=== PATIENT | male | born 1955 | race Caucasian/White ===

== ENCOUNTER 2020-03-22 06:18 | Outpatient (REF) | payer BC, SELFPAY ==
[2020-03-22 07:13] LABS: MANUAL DIFF FLAG NO
[2020-03-22 07:20] LABS: Basophils Absolute Auto 0.1 X10*3/uL (0.0-0.2); Eosinophils Absolute Auto 1.3 X10*3/uL (0.0-0.4); Eosinophils Percent Auto 14.6 % (0-4); Hematocrit 45.8 % (42-52); Hemoglobin 15.1 g/dl (14.0-18.0); Imm Gran Abs Auto 0.01 X10*3/uL (0.00-0.03); Imm Gran Pct Auto 0.1 % (0.0-0.4); Lymphocytes Absolute Auto 2.3 X10*3/uL (1.2-4.9); Lymphocytes Percent Auto 26.5 % (20-40); Mean Corpuscular Hemoglobin 30.4 pg (27.0-33.0); Mean Corpuscular Volume 92.3 fL (80-98); Monocytes Absolute Auto 0.9 X10*3/uL (0.1-1.2); Monocytes Percent Auto 9.9 % (2-11); Neutrophils Absolute Auto 4.1 X10*3/uL (2.0-8.3); Neutrophils Percent Auto 47.9 % (45-73); Platelet Count 272 X10*3/uL (160-400); Red Blood Count 4.96 X10*6/uL (4.60-5.80); Red Cell Distribution Width 13.8 % (11.0-16.0); White Blood Count 8.7 X10*3/uL (4.8-10.8)
[2020-03-22 07:20] LABS: Glucose Urine UA NEG (NEG); Leukocyte Esterase Urine NEG (NEG); Nitrite Urine NEG (NEG); PH 5.5 (5.0-8.0); Specific Gravity - Urine 1.025 (1.005-1.025); Urine Blood TRACE (NEG); Urine Ketones NEG (NEG); Urine Protein NEG (NEG-TRACE)
[2020-03-22 07:23] LABS: Appearance Urine CLEAR; Color Urine YELLOW
[2020-03-22 07:47] LABS: Alanine Aminotransferase 24 U/L (0-40); Albumin Level 3.9 g/dL (3.5-5.0); Alkaline Phosphatase 100 U/L (39-117); Anion Gap 11 (12-20); Aspartate Amino Transferase 21 U/L (5-37); Bilirubin Direct 0.4 mg/dL (0.0-0.5); Blood Urea Nitrogen 19 mg/dL (9-16); C Reactive Protein 0.19 mg/dL (< or = 0.50); Calcium 8.9 mg/dL (8.4-10.2); Carbon Dioxide 28 mmol/L (22-29); Chloride 108 mmol/L (96-108); Cholesterol 194 mg/dL; Estimated Glomerular Filt Rate > 60; Glucose Fasting 97 mg/dL (60-99); HDL Cholesterol 66 mg/dL; LDL Cholesterol Calculated 110 mg/dl; Potassium 4.5 mmol/l (3.3-5.1); Sodium 142 mmol/L (135-145); Total Protein 7.5 g/dL (6.5-8.0); Triglycerides 90 mg/dL
[2020-03-22 07:48] LABS: RBC Urine 0-2 /HPF (0); WBC Urine 0-2 /HPF (0-4)
[2020-03-22 08:10] LABS: Free T4 (Free Thyroxine) 0.94 ng/dL (0.71-1.85); Prostate Specific Antigen 1.12 ng/mL (<0.05-4.0); Vitamin D 25-OH Total 46.9 ng/mL (>30)
[2020-03-22 08:45] LABS: Erythrocyte Sedimentation Rate 13 MM/HR (0-15)
== END 2020-03-22 06:19 | disposition home or self-care (01) ==
LOC: HO.LAB 06:18
DX: Z00.00 Encounter for general adult medical examination without abnormal findings (principal); Z13.220 Encounter for screening for lipoid disorders; Z12.5 Encounter for screening for malignant neoplasm of prostate
CPT/HCPCS: 36415; 80053; 80061; 80076; 81001; 82248; 82306; 84153; 84439; 84443; 85025; 85652; 86140

== ENCOUNTER 2020-07-22 07:37 | Outpatient (REF) | payer MEDICARE, SELFPAY ==
--- NOTE | ~2020-07-22 | XR_ITS ---
EXAMINATION: XR LUMBOSACRAL SPINE CLINICAL INFORMATION: Low back pain COMPARISON: Lumbar spine 01/22/2006. TECHNIQUE: Three views of the lumbosacral spine. FINDINGS: There is normal lumbar lordosis. There is grade 1 anterolisthesis L4 over L5 and L5 over S1. There are severe degenerative disc changes at L5-S1 and L4-L5 disc level. Rest of the disc levels are unremarkable. No lytic or sclerotic process seen. XR/XR lumbar spine 2-3V IMPRESSION: Grade 1 anterolisthesis L4 over L5 and L5 over S1. Severe degenerative disc changes L5-S1 disc level mild degenerative changes L4-L5 disc level. No fracture or lytic process seen.
== END 2020-07-22 07:38 | disposition home or self-care (01) ==
LOC: HO.XRAY 07:37
PROVIDERS: PCP Internal Medicine; Visit Provider Internal Medicine
DX: M54.5 Low back pain (principal)
CPT/HCPCS: 72100

== ENCOUNTER 2021-03-24 07:18 | Outpatient (REF) | payer MEDICARE, SELFPAY ==
[2021-03-24 07:36] LABS: MANUAL DIFF FLAG NO
[2021-03-24 08:03] LABS: Basophils Absolute Auto 0.1 X10*3/uL (0.0-0.2); Eosinophils Percent Auto 11.9 % (0-4); Hematocrit 48.6 % (42.0-52.0); Hemoglobin 15.7 g/dl (14.0-18.0); Imm Gran Abs Auto 0.02 X10*3/uL (0.00-0.03); Imm Gran Pct Auto 0.2 % (0.0-0.4); Lymphocytes Percent Auto 23.5 % (20-40); Mean Corpuscular HGB Conc 32.3 g/dl (31.0-36.0); Mean Corpuscular Hemoglobin 30.1 pg (27.0-33.0); Mean Corpuscular Volume 93.1 fL (80.0-98.0); Mean Platelet Volume 10.6 fL (9.4-12.4); Monocytes Absolute Auto 0.7 X10*3/uL (0.1-1.2); Monocytes Percent Auto 8.6 % (2-11); Neutrophils Absolute Auto 4.7 x10*3/uL (2.0-8.3); Neutrophils Percent Auto 54.8 % (45-73); Platelet Count 292 X10*3/uL (160-400); Red Blood Count 5.22 X10*6/uL (4.60-5.80); Red Cell Distribution Width 13.6 % (11.0-16.0); White Blood Count 8.6 X10*3/uL (4.8-10.8)
[2021-03-24 08:22] LABS: Alanine Aminotransferase 29 U/L (0-40); Albumin Level 3.9 g/dL (3.5-5.0); Alkaline Phosphatase 93 U/L (39-117); Anion Gap 11 (12-20); Aspartate Amino Transferase 24 U/L (5-37); Bilirubin Total 1.5 mg/dL (0.0-1.0); Blood Urea Nitrogen 15 mg/dL (9-16); Calcium 9.6 mg/dL (8.4-10.2); Carbon Dioxide 28 mmol/L (22-29); Chloride 109 mmol/L (96-108); Cholesterol 193 mg/dL; Estimated Glomerular Filt Rate > 60; Glucose Random 91 mg/dL (60-115); Potassium 4.6 mmol/L (3.3-5.1); Sodium 143 mmol/L (135-145); Total Protein 7.7 g/dL (6.5-8.0)
[2021-03-24 08:36] LABS: Appearance Urine CLEAR; Color Urine YELLOW; Glucose Urine UA NEG (NEG); Leukocyte Esterase Urine NEG (NEG); Nitrite Urine NEG (NEG); Urine Blood NEG (NEG); Urine Ketones NEG (NEG); Urine Protein NEG (NEG-TRACE)
[2021-03-24 08:42] LABS: Prostate Specific Antigen 1.77 ng/mL (<0.05-4.0)
== END 2021-03-24 07:19 | disposition home or self-care (01) ==
LOC: HO.LAB 07:18
PROVIDERS: PCP Internal Medicine; Visit Provider Internal Medicine
DX: Z00.00 Encounter for general adult medical examination without abnormal findings (principal); K21.9 Gastro-esophageal reflux disease without esophagitis; N40.0 Benign prostatic hyperplasia without lower urinary tract symptoms
CPT/HCPCS: 36415; 80053; 81003; 82465; 84153; 85025

== ENCOUNTER 2021-08-15 07:12 | Outpatient (REF) | payer MEDICARE, SELFPAY ==
--- NOTE | ~2021-08-15 | XR_ITS ---
EXAMINATION: XR SHOULDER, RIGHT CLINICAL INFORMATION: Right shoulder pain. COMPARISON: None TECHNIQUE: Three views of the right shoulder. FINDINGS: There is no evidence of acute fracture or dislocation of the right shoulder. The glenohumeral joint appears unremarkable. No calcific tendinitis is appreciated. There is a small spur seen involving either the lesser or greater tuberosity. There is degenerative change of the acromioclavicular joint with loss of joint space and prominent spurring. No widening of the coracoclavicular space is seen. XR/XR shoulder RT min 2V IMPRESSION: No evidence of acute fracture or dislocation of the right shoulder. No calcific tendinitis. Acromioclavicular joint degenerative change.
== END 2021-08-15 07:13 | disposition home or self-care (01) ==
LOC: HO.HOSX 07:12
PROVIDERS: Visit Provider Physician Assistant
DX: M75.21 Bicipital tendinitis, right shoulder (principal)
CPT/HCPCS: 20610; 73030; 99202; J1040

== ENCOUNTER 2022-04-20 07:13 | Outpatient (REF) | payer MEDICARE, SELFPAY ==
[2022-04-20 07:30] LABS: MANUAL DIFF FLAG NO
[2022-04-20 07:54] LABS: Basophils Absolute Auto 0.1 X10*3/uL (0.0-0.2); Basophils Percent Auto 1.1 % (0-2); Eosinophils Absolute Auto 1.5 X10*3/uL (0.0-0.4); Hematocrit 44.7 % (42.0-52.0); Hemoglobin 14.5 g/dl (14.0-18.0); Imm Gran Abs Auto 0.05 X10*3/uL (0.00-0.03); Imm Gran Pct Auto 0.4 % (0.0-0.4); Lymphocytes Absolute Auto 2.2 X10*3/uL (1.2-4.9); Lymphocytes Percent Auto 19.2 % (20-40); Mean Corpuscular HGB Conc 32.4 g/dl (31.0-36.0); Mean Corpuscular Hemoglobin 30.5 pg (27.0-33.0); Mean Corpuscular Volume 93.9 fL (80.0-98.0); Mean Platelet Volume 10.2 fL (9.4-12.4); Monocytes Absolute Auto 1.1 X10*3/uL (0.1-1.2); Monocytes Percent Auto 9.7 % (2-11); Neutrophils Absolute Auto 6.5 x10*3/uL (2.0-8.3); Neutrophils Percent Auto 56.6 % (45-73); Platelet Count 287 X10*3/uL (160-400); Red Blood Count 4.76 X10*6/uL (4.60-5.80); White Blood Count 11.6 X10*3/uL (4.8-10.8)
[2022-04-20 08:26] LABS: Alanine Aminotransferase 28 U/L (0-40); Albumin Level 3.7 g/dL (3.5-5.0); Alkaline Phosphatase 98 U/L (39-117); Anion Gap 11 (12-20); Aspartate Amino Transferase 20 U/L (5-37); Bilirubin Total 1.2 mg/dL (0.0-1.0); Blood Urea Nitrogen 16 mg/dL (9-16); Calcium 9.3 mg/dL (8.4-10.2); Carbon Dioxide 28 mmol/L (22-29); Chloride 109 mmol/L (96-108); Cholesterol 177 mg/dL; Estimated Glomerular Filt Rate > 60; Glucose Fasting 96 mg/dL (60-99); HDL Cholesterol 60 mg/dL; LDL Cholesterol Calculated 98 mg/dl; Potassium 4.7 mmol/L (3.3-5.1); Sodium 143 mmol/L (135-145); Total Protein 7.2 g/dL (6.5-8.0); Triglycerides 98 mg/dL
== END 2022-04-20 07:14 | disposition home or self-care (01) ==
LOC: HO.LAB 07:13
PROVIDERS: PCP Internal Medicine; Visit Provider Internal Medicine
DX: Z00.00 Encounter for general adult medical examination without abnormal findings (principal); Z12.5 Encounter for screening for malignant neoplasm of prostate
CPT/HCPCS: 36415; 80053; 80061; 84153; 85025

== ENCOUNTER 2022-10-25 15:56 | Outpatient (REF) | payer MEDICARE, SELFPAY ==
--- NOTE | ~2022-10-25 | XR_ITS ---
EXAMINATION: XR ELBOW, LEFT CLINICAL INFORMATION: Elbow fracture COMPARISON: None available. TECHNIQUE: Three views of the left elbow. FINDINGS: Impacted fracture of the radial head and neck. Displacement of the anterior fat pad compatible with joint effusion. Soft tissues are otherwise unremarkable. Joint spaces are maintained. XR/XR elbow LT min 3V IMPRESSION: 1. Impacted fracture of the radial head and neck. 2. Displacement of the anterior fat pad compatible with joint effusion.
== END 2022-10-25 15:57 | disposition home or self-care (01) ==
LOC: HO.LAB 15:56
PROVIDERS: PCP Internal Medicine; Visit Provider Internal Medicine
DX: S42.402D Unspecified fracture of lower end of left humerus, subsequent encounter for fracture with routine healing (principal); X58.XXXD Exposure to other specified factors, subsequent encounter
CPT/HCPCS: 73080

== ENCOUNTER 2023-05-14 06:20 | Outpatient (REF) | payer MEDICARE, SELFPAY ==
[2023-05-14 06:35] LABS: MANUAL DIFF FLAG NO
[2023-05-14 07:03] LABS: Basophils Absolute Auto 0.1 X10*3/uL (0.0-0.2); Basophils Percent Auto 0.8 % (0-2); Eosinophils Absolute Auto 0.9 X10*3/uL (0.0-0.4); Eosinophils Percent Auto 9.6 % (0-4); Hematocrit 45.5 % (42.0-52.0); Hemoglobin 15.1 g/dl (14.0-18.0); Imm Gran Abs Auto 0.02 X10*3/uL (0.00-0.03); Imm Gran Pct Auto 0.2 % (0.0-0.4); Lymphocytes Percent Auto 21.4 % (20-40); Mean Corpuscular HGB Conc 33.2 g/dl (31.0-36.0); Mean Corpuscular Hemoglobin 30.4 pg (27.0-33.0); Mean Corpuscular Volume 91.7 fL (80.0-98.0); Mean Platelet Volume 10.2 fL (9.4-12.4); Monocytes Absolute Auto 0.9 X10*3/uL (0.1-1.2); Monocytes Percent Auto 9.3 % (2-11); Neutrophils Absolute Auto 5.6 x10*3/uL (2.0-8.3); Neutrophils Percent Auto 58.7 % (45-73); Platelet Count 264 X10*3/uL (160-400); Red Blood Count 4.96 X10*6/uL (4.60-5.80); Red Cell Distribution Width 13.8 % (11.0-16.0); White Blood Count 9.5 X10*3/uL (4.8-10.8)
[2023-05-14 07:54] LABS: Prostate Specific Antigen Scr 1.57 ng/mL (<0.05-4.0)
[2023-05-14 15:17] LABS: Alanine Aminotransferase 30 U/L (0-40); Albumin Level 3.9 g/dL (3.5-5.0); Alkaline Phosphatase 110 U/L (39-117); Anion Gap 13 (12-20); Aspartate Amino Transferase 22 U/L (5-37); Bilirubin Total 0.7 mg/dL (0.0-1.0); Blood Urea Nitrogen 20 mg/dL (9-16); Calcium 9.5 mg/dL (8.4-10.2); Carbon Dioxide 27 mmol/L (22-29); Chloride 109 mmol/L (96-108); Cholesterol 192 mg/dL (<200); Estimated Glomerular Filt Rate > 60; Glucose Fasting 98 mg/dL (60-99); HDL Cholesterol 66 mg/dL (>40); LDL Cholesterol Calculated 107 mg/dL (<100); Potassium 4.6 mmol/L (3.3-5.1); Sodium 144 mmol/L (135-145); Total Protein 7.4 g/dL (6.5-8.0); Triglycerides 98 mg/dL (<150)
== END 2023-05-14 06:21 | disposition home or self-care (01) ==
LOC: HO.LAB 06:20
PROVIDERS: PCP Internal Medicine; Visit Provider Internal Medicine
DX: M54.9 Dorsalgia, unspecified (principal); J45.909 Unspecified asthma, uncomplicated; Z87.09 Personal history of other diseases of the respiratory system; Z82.49 Family history of ischemic heart disease and other diseases of the circulatory system
CPT/HCPCS: 36415; 80053; 80061; 84153; 85025

== ENCOUNTER 2023-07-30 07:02 | Outpatient (REF) | payer MEDICARE, SELFPAY ==
--- NOTE | ~2023-07-30 | XR_ITS ---
EXAMINATION: XR ANKLE, LEFT CLINICAL INFORMATION: Left ankle swelling, patient states history of surgery in 1994. Recently left ankle pain, hobble when walking. COMPARISON: None available. TECHNIQUE: AP, lateral, and mortise views of the left ankle. FINDINGS: Metallic plate and screws traverse the distal fibula with evidence of prior fracture. Three (3) screws present in the distal tibia. Hardware appears intact. Bones are diffusely demineralized. Small plantar calcaneal spur. Mild asymmetric widening of the ankle mortise. Degenerative changes at the ankle. XR/XR ankle LT min 3V IMPRESSION: 1. Postsurgical changes distal tibia and fibula. Hardware appears intact. 2. Mild asymmetric widening of the ankle mortise. 3. Recommend follow-up imaging in 10-14 days if fracture is suspected.
== END 2023-07-30 07:03 | disposition home or self-care (01) ==
LOC: HO.XRAY 07:02
PROVIDERS: PCP Internal Medicine; Visit Provider Internal Medicine
DX: R60.0 Localized edema (principal)
CPT/HCPCS: 73610

== ENCOUNTER 2024-04-28 12:41 | Outpatient (AMB) | payer MEDICARE, SELFPAY ==
--- NOTE | 2024-04-28 12:45 | A.SPINEOV_ITS ---
Vital Signs 04/28/24 13:02 Height 5 ft 10 in Weight 200 lb BMI 28.7 Intake Visit Reasons: sciatic pain Intake Note: Mr. Avelar is here today c/o Low back discomfort that causes tingling to the Left ankle. Hotel Operations Manager Required: No Allergies aspirin Allergy (Verified 04/28/24 13:02) runny nose, labored breathering azithromycin [From Zithromax] Allergy (Verified 08/15/21 08:19) Itching Physical Exam Vital Signs: BMI result Body Mass Index 28.7 Assessment & Plan Assessment & Plan (1) Spondylolisthesis, lumbar region: Code(s): M43.16 - Spondylolisthesis, lumbar region Category: Medical (2) Lumbar stenosis with neurogenic claudication: Code(s): M48.062 - Spinal stenosis, lumbar region with neurogenic claudication Category: Medical Plan Dear colleague Thank you for referring Alex Avelar to the office today with a chief complaint of left leg discomfort and weakness. HPI: This 68 year old male developed discomfort in his left leg after he was painting in 1999. The pain/discomfort is present in the left side of his buttock and can radiate to his groin and outside of his thigh. Sometimes it goes down to the outside of his left ankle. The symptoms are worse with walking and standing. He likes to sit in a recliner and bending forward also improves the symptoms. He denies significant back pain. [facility] was [facility] at [facility] who told him that he most likely would need surgery. He tried physical therapy and acupuncture but the symptoms never resolved completely. He saw Dr. Alexander, neurosurgeon in October of 2022, who recommended another course of physical therapy and also told him that he would most likely end up with some form of surgery. He also states he has weakness in his left leg. On further questioning he has difficulty getting out of a chair and when he stands on his left leg is a feeling it may give out. In the past, he also suffered from pain in the right leg for a period of time that resolved spontaneously. He takes Celebrex daily. PMH: Left ankle surgery Medications: Aspirin, Advair and Celebrex Allergies: Aspirin? 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 Denies smoking. Physical Exam: Pleasant male. He walks in a flexed position.Wilcox test produces pain in the left buttock. Straight leg raise is negative bilaterally. Motor exam shows a 5 iliopsoas on the left side. Reflex exam shows a discrepancy between upper and lower extremities where there is hyperreflexia of the lower extremities. There is a ankle clonus on the right side. There is Manny reflexes bilaterally. Sensory exam is intact. Radiological Studies: MRI done at [facility] on 03/16/2024 shows a grade 1 L4-5 spondylolisthesis and a grade 2 L5-S1 spondylolisthesis with associated severe L4-5 spinal stenosis and moderate bilateral L5 foraminal stenosis. There is also moderate L3-4 spinal stenosis and a mild L2-L3 central stenosis. Impression/Plan: This patient is suffering from left unilateral neurogenic claudication most likely related to the severe L4-5 spinal stenosis and foraminal stenosis. I offered him a laminotomy/foraminotomy to decompress the L5 nerve root and to address his symptoms. I do not think he needs any form a fusion surgery at this time as he denies back pain. However, before we will further discuss surgery, I would like to have an MRI of the cervical spine to exclude spinal cord compression as the physical exam reveals iliopsoas weakness and hyperreflexia and pathological reflexes. I will follow-up as soon as the MRI is completed. Thank you for allowing me to participate in your patients care. total time spent was 50 minutes in counseling ,coordination of plan, personal review of imaging, surgical decision making and subsequent plan Bobby Thomas MD, PhD Spine Fellowship Trained Neurosurgeon Director, [facility] Orders: Orders MR cervical spine wo con Today G95.9 - Disease of spinal cord, unspecified Coding Level of Care Code New Pt Level 4 (11602) Diagnoses Spondylolisthesis, lumbar region M43.16 Lumbar stenosis with neurogenic claudication M48.062
[2024-04-28 13:02] VITALS: BMI 28.7
--- OUTSIDE RECORDS SUMMARY | 2024-04-28 14:29 | XMS_ITS | Clinical Summary ---
Author Organization [facility] ity Address [address] [place] [address] Care Team Providers Care Commercial Producer Name Role Phone Scott Covarrubias MD Primary Care Provider [phone] Surgical History Surgery Date Site/Laterality Comments ANKLE SURGERY 1994 Left PROCEDURE: HISTORICAL ANKLE SURGERY; COMMENT: Ankle fracture, Dr. Flores Medical History Medical History Date Comments Aspirin-exacerbated respirat ory disease (AERD) DX:Aspirin-exacerbated respi ratory disease (AERD); COMMENT: Had desensitization at [facility] Mild intermittent asthma, uncomplicated DX:Mild intermittent asthma, uncomplicated Social History Tobacco Use Types Packs/Day Years Used Date Smoking Tobacco: Never Smokeless Tobacco: Never Sex and Gender Information Value Date Recorded Sex Assigned at Not on file Gender Identity Not on file Sexual Orientation Not on file Obstetrics History Last Filed Vital Signs Vital Sign Reading Time Taken Comments Blood Pressure - - Pulse - - Temperature - - Respiratory Rate - - Oxygen Saturation - - Inhaled Oxygen Concentration - - Weight 86.2 kg (190 lb) 08/23/2022 1:18 PM EDT Height 177.8 cm (5' 10 ) 08/23/2022 1:18 PM EDT Body Mass Index 27.26 08/23/2022 1:18 PM EDT Plan of Treatment Health Maintenance Due Date Last Done Comments Zoster Vaccines (1 of 2) 07/16/2005 Pneumococcal Vaccine: 65+ Years (1 of 1 - PCV) 07/16/2020 Abdominal Aortic Aneurysm (AAA) Screen 05/07/2023 Cholesterol Screening (Lipid Panel) 05/07/2023 Colorectal Cancer Screening: Colonoscopy 05/07/2023 Depression Screening 05/07/2023 Falls Risk Assessment 05/07/2023 Hepatitis C Screening 05/07/2023 Social Influencers of Health Screening 05/07/2023 COVID-19 Vaccine (4 - 2023-2 5 season) 2023 05/01/2021, 07/27/2020, 07/06/2020 Influenza Vaccine (#1) 2023 DTaP,Tdap,and Td Vaccines (2 - Td or Tdap) 04/23/2027 04/23/2017 RSV Immunization Patients 60 + Years Old (1 - 1-dose 75+ series) 07/16/2030 HIB Vaccines Aged Out No longer eligi ble based on patient's age to complete this topic HPV Vaccines Aged Out No longer eligi ble based on patient's age to complete this topic Hepatitis A Vaccines Aged Out No long er eligible based on patient's age to complete this topic Hepatitis B Vaccines Aged Out No long er eligible based on patient's age to complete this topic IPV Vaccines Aged Out No longer eligi ble based on patient's age to complete this topic MMR Vaccines Aged Out No longer eligi ble based on patient's age to complete this topic Meningococcal ACWY Vaccine Aged Out N o longer eligible based on patient's age to complete this topic RSV Immunization Patients Under 20 months Aged Out No longer eligible b ased on patient's age to complete this topic Varicella Vaccines Aged Out No longer eligible based on patient's age to complete this topic Care Teams Commercial Producer Relationship Specialty Start Date End Date Scott Covarrubias MD [address] [place] [address] Dr Bjorn MA PCP - General 08/27/22
== END 2024-04-28 13:50 | disposition home or self-care (01) ==
PROVIDERS: PCP Internal Medicine; Visit Provider Neurological Surgery
DX: M43.16 Spondylolisthesis, lumbar region (principal); M48.062 Spinal stenosis, lumbar region with neurogenic claudication
CPT/HCPCS: 99204

== ENCOUNTER → 2024-04-28 12:41 | Outpatient (BNVA) | payer MEDICARE, SELFPAY | PROVIDERS: PCP Internal Medicine; Visit Provider Neurological Surgery | DX: M43.16 Spondylolisthesis, lumbar region (principal); M48.062 Spinal stenosis, lumbar region with neurogenic claudication; G95.9 Disease of spinal cord, unspecified | CPT/HCPCS: 99202 ==

== ENCOUNTER 2024-09-03 10:39 | Outpatient (AMB) | payer MEDICARE, SELFPAY ==
[2024-09-03 10:11] VITALS: BP 142/86; PULSE 77; TEMP 36.5; O2SAT 98; BMI 29.3
--- NOTE | 2024-09-03 10:11 | A.OFFPC_ITS ---
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: No Accompanied by: Self / Same As Patient Allergies aspirin Allergy (Verified 09/03/24 10:11) runny nose, labored breathering azithromycin [From Zithromax] Allergy (Verified 09/03/24 10:11) Itching Tobacco use date assessed: 09/03/24 Fall risk assessment: No Falls in past year Last assessed Fall Risk: 09/03/24 Dental Screening Dental Screen Date: 09/03/24 Did you have a dental visit in the last 12 months?: Yes Did you have a dental problem in the last 6 months where you did not have access to dental care?: No HPI HPI Comments History of Present Illness Details 69 year old with past medical history of asthma, DDD cervical, lumbar s pine, arthritis presenting for follow up BP 142/86, repeat 136/84. Denies chest pain, exertional dyspnea. Asthma: Controlled on advair, pulmicort nasal. Saw neurosurgery Dr Thomas-recommended procedure and Dr Ordaz-did not recommend procedure. Saw [facility] pain management in [facility]. Had one injection July 21. On celebrex. Gets the brand name through [facility] pharmacy Colonoscopy: Dr Elaine initial colonoscopy. Summer 2023-cologua ROS CONSTITUTIONAL: Denies weight loss, fever and chills. HEENT: Denies changes in vision and hearing. RESPIRATORY: Denies SOB and cough. CV: Denies palpitations and CP GI: Denies abdominal pain, nausea, vomiting and diarrhea. : Denies dysuria and urinary frequency. MSK: Denies new myalgia and joint pain. SKIN: Denies rash and pruritus. NEUROLOGICAL: Denies headache PSYCHIATRIC: Denies recent changes in mood. PHYSICAL EXAM: GENERAL: Alert and oriented x 3. NAD EYES: EOMI. Anicteric. HENT: Moist mucous membranes. No scleral icterus. No cervical lymphadenopathy. LUNGS: Clear to auscultation bilaterally. CARDIOVASCULAR: Regular rate and rhythm. No murmur. No JVD. ABDOMEN: Soft, non-tender +bs EXTREMITIES: No edema. Non-tender. SKIN: No rashes or lesions. Warm. NEUROLOGIC: No focal neurological deficits. CN II-XII grossly intact PSYCHIATRIC: Cooperative. Appropriate mood and affect [facility] Medical History Asthma Surgical History History of ankle surgery Family History Mother Heart disease Type 2 diabetes mellitus Father No problems noted. 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 1. Little interest or pleasure in doing things: not at all 2. Feeling down, depressed, or hopeless: not at all 3. Trouble falling or staying asleep, or sleeping too much: not at all 4. Feeling tired or having little energy: not at all 5. Poor appetite or overeating: not at all 6. Feeling bad about yourself - or that you are a failure or have let yourself or your family down: not at all 7. Trouble concentrating on things, such as reading the newspaper or watching television: not at all 8. Moving or speaking so slowly that other people could have noticed. Or the opposite - being so fidgety or restless that you have been moving around a lot more than usual: not at all 9. Thoughts that you would be better off or of hurting yourself in some way: not at all Total score: 0 Depression Screening Interpretation: Negative Depression Screening Done: Yes 04202 - PHQ-9 Billing: Yes Source: Developed by Drs. Stiven Patiño, Zhane Cuadra, Adan Buckner and colleagues, with an educational shraddha from [employer]. Thrive Questionnaire Date Thrive assessed: 09/03/24 I am a: Patient Within the past 12 months, did the food you bought not last and you didn't have the money to get more?: Never true Within the past 12 months, did you worry whether your food would run out before you got money to buy more?: Never true Do you have trouble paying for medicines?: No Do you have trouble getting transportation to medical appointments?: No Do you have trouble paying your heating and electricity bill?: No Do you have trouble taking care of your child, family member or friend?: No Do you have trouble with day-to-day activities such as bathing, preparing meals, shopping, managing finances, etc.?: No Are you currently unemployed and looking for a job?: No Are you interested in more education?: No THRIVE Score: 0 AUDIT C Alcohol Use Questionnaire (AUDIT-C) 1. How often do you have a drink containing alcohol?: Monthly or less 2. How many drinks containing alcohol do you have on a typical day when you are drinking?: 1 or 2 3. How often do you have six or more drinks on one occasion?: Less than monthly Total Score: 2 PAULINE-7 AMB Questionnaire PAULINE-7 Date PAULINE - 7 assessed: 09/03/24 Feeling nervous, anxious, or on edge: 0 = Not at all Not being able to stop or control worryin = Not at all Worrying too much about different things: 0 = Not at all Trouble relaxin = Not at all Being so restless that it is hard to sit still: 0 = Not at all Becoming easily annoyed or irritable: 0 = Not at all Feeling afraid as if something awful might happen: 0 = Not at all Total PAULINE-7 score (0-4 normal; 5-9 mild; 10-14 moderate; 15-21 severe): 0 Source: Developed by Drs. Stiven Patiño, Zhane Cuadra, Adan Buckner and colleagues, with an educational shraddha from [employer]. Physical exam (Primary Care) Vital Signs: Last Vital Signs Temp 97.7 F 09/03/24 10:11 Pulse 77 09/03/24 10:11 BP 142/86 H 09/03/24 10:11 Pulse Ox 98 09/03/24 10:11 Oxygen Delivery Method Room Air 09/03/24 10:11 BMI result Body Mass Index 29.3 Tobacco/Smoking Status: Tobacco use Status Tobacco use date assessed 09/03/24 09/03/24 10:12 Patient Tobacco Use Status Former Tobacco user 09/03/24 11:01 e-Cigarette/Vaping Use Former Use 09/03/24 11:01 PHQ-9: PHQ-9 Score PHQ-9: Total score 0 09/04/24 10:00 Depression Screening Interpretation: Negative Thrive Assessment: Date of Thrive Assessment Date Thrive assessed 09/03/24 09/03/24 10:12 Coding Level of Care Code New Pt Level 4 (58217) Complex EM visit Add On G2211 Diagnoses Lumbar stenosis with neurogenic claudication M48.062 Spondylolisthesis, lumbar region M43.16 Asthma, unspecified asthma severity, unspecified whether complicated, unspecified whether persistent J45.909 Asthma complication type: unspecified Asthma persistence: unspecified Asthma severity: unspecified severity Pain of lower extremity, unspecified laterality M79.606 Laterality: unspecified laterality Additional Codes PHQ-9 - 44928 - PHQ-9 Billing: Yes ([id number]) Assessment & Plan Assessment & Plan (1) Lumbar stenosis with neurogenic claudication: Code(s): M48.062 - Spinal stenosis, lumbar region with neurogenic claudication Category: Medical (2) Spondylolisthesis, lumbar region: Code(s): M43.16 - Spondylolisthesis, lumbar region Category: Medical (3) Asthma: Code(s): J45.909 - Unspecified asthma, uncomplicated Category: Medical Qualifiers: Asthma complication type: unspecified Asthma persistence: unspecified Asthma severity: unspecified severity Qualified Code(s): J45.909 - Unspecified asthma, uncomplicated (4) Leg pain: Code(s): M79.606 - Pain in leg, unspecified Category: Medical Qualifiers: Laterality: unspecified laterality Qualified Code(s): M79.606 - Pain in leg, unspecified Plan 69 year old to establish care Lumbar radiculopathy-he might get third NS opinion if next lumbar injection is not effective Continue celebrex which is ordered Asthma is well controlled Labs are ordered Orders: Orders Complete Blood Count Auto Diff 09/03/24 Z12.5 - Encounter for screening for malignant neoplasm of prostate, Z13.0 - Encounter for screening for diseases of the blood and blood-forming organs and certain disorders involving the immune mechanism, Z13.220 - Encounter for screening for lipoid disorders, Z13.228 - Encounter for screening for other metabolic disorders Comprehensive Met. Panel 09/03/24 Z12.5 - Encounter for screening for malignant neoplasm of prostate, Z13.0 - Encounter for screening for diseases of the blood and blood-forming organs and certain disorders involving the immune mechanism, Z13.220 - Encounter for screening for lipoid disorders, Z13.228 - Encounter for screening for other metabolic disorders Lyme IgG/IgM w/reflex to WB 09/03/24 M79.606 - Pain in leg, unspecified Lipid Panel 09/03/24 Z12.5 - Encounter for screening for malignant neoplasm of prostate, Z13.0 - Encounter for screening for diseases of the blood and blood- forming organs and certain disorders involving the immune mechanism, Z13.220 - Encounter for screening for lipoid disorders, Z13.228 - Encounter for screening for other metabolic disorders Prostate Specific Antigen 09/03/24 Z12.5 - Encounter for screening for malignant neoplasm of prostate, Z13.0 - Encounter for screening for diseases of the blood and blood-forming organs and certain disorders involving the immune mechanism, Z13.220 - Encounter for screening for lipoid disorders, Z13.228 - Encounter for screening for other metabolic disorders Medications: Changed From Celebrex (celecoxib) may pay out of pocket if not covered 200 mg PO BID 90 days 180 caps 3RF NS M75.21 - Bicipital tendinitis, right shoulder To Celebrex (celecoxib) 200 mg PO Q24H 90 caps 3RF 90 days NS M75.21 - Bicipital tendinitis, right shoulder From Celebrex (celecoxib) 200 mg PO BID 30 days 60 caps 3RF NS M75.21 - Bicipital tendinitis, right shoulder To Celebrex (celecoxib) may pay out of pocket if not covered 200 mg PO BID 90 days 180 caps 3RF NS M75.21 - Bicipital tendinitis, right shoulder
--- OUTSIDE RECORDS SUMMARY | 2024-09-03 11:25 | XMS_ITS | Clinical Summary ---
Author Organization [facility] ity Address [address] [place] [address] Care Team Providers Care Alliance Consultant Name Role Phone Scott Covarrubias MD Primary Care Provider [phone] Surgical History Surgery Date Site/Laterality Comments ANKLE SURGERY 1994 Left PROCEDURE: HISTORICAL ANKLE SURGERY; COMMENT: Ankle fracture, Dr. Flores Medical History Medical History Date Comments Aspirin-exacerbated respirat ory disease (AERD) DX:Aspirin-exacerbated respi ratory disease (AERD); COMMENT: Had desensitization at [facility] Mild intermittent asthma, uncomplicated DX:Mild intermittent asthma, uncomplicated Social History Tobacco Use Types Packs/Day Years Used Date Smoking Tobacco: Never Smokeless Tobacco: Never Sex and Gender Information Value Date Recorded Sex Assigned at Not on file Legal Sex Male 2:39 PM EST Gender Identity Not on file Sexual Orientation [...] Health Maintenance Due Date Last Done Comments Pneumococcal Vaccine: 50+ Years (1 of 1 - PCV) 07/16/2005 Zoster Vaccines (1 of 2) 07/16/2005 Abdominal Aortic Aneurysm (AAA) Screen 05/07/2023 Cholesterol Screening (Lipid Panel) 05/07/2023 Colorectal Cancer Screening: Colonoscopy 05/07/2023 Depression Screening 05/07/2023 Falls Risk Assessment 05/07/2023 Hepatitis C Screening 05/07/2023 Social Influencers of Health Screening 05/07/2023 COVID-19 Vaccine (4 - 2023-2 5 season) 2023 05/01/2021, 07/27/2020, 07/06/2020 Influenza Vaccine (Season Ended) 2024 DTaP,Tdap,and Td Vaccines (2 - Td or Tdap) 04/23/2027 04/23/2017 RSV Immunization Adult Patients (1 - 1-dose 75+ series) 07/16/2030 HIB [...] patient's age to complete this topic Meningococcal B Vaccine Aged Out No l onger eligible based on patient's age to complete this topic RSV Immunization Patients Under 20 months Aged Out No longer eligible b ased on patient's age to complete this topic Varicella Vaccines Aged Out No longer eligible based on patient's age to complete this topic Care Teams Alliance Consultant Relationship Specialty Start Date End Date Scott Covarrubias MD [address] [place] [address] Dr Bjorn MA PCP - General 08/27/22
== END 2024-09-03 11:37 | disposition home or self-care (01) ==
LOC: HO.HMCHD 10:40
PROVIDERS: PCP Internal Medicine; Visit Provider Internal Medicine
DX: M48.062 Spinal stenosis, lumbar region with neurogenic claudication (principal); M43.16 Spondylolisthesis, lumbar region; J45.909 Unspecified asthma, uncomplicated; M79.606 Pain in leg, unspecified

== ENCOUNTER → 2024-09-03 10:39 | Outpatient (BNVA) | payer MEDICARE, SELFPAY | PROVIDERS: PCP Internal Medicine; Visit Provider Internal Medicine | DX: M48.062 Spinal stenosis, lumbar region with neurogenic claudication (principal); M43.16 Spondylolisthesis, lumbar region; J45.909 Unspecified asthma, uncomplicated; M79.606 Pain in leg, unspecified | CPT/HCPCS: 96127; 99202 ==

== ENCOUNTER 2024-09-22 06:26 | Outpatient (REF) | payer MEDICARE, SELFPAY ==
--- OUTSIDE RECORDS SUMMARY | 2024-09-22 06:29 | XMS_ITS | Clinical Summary ---
Author Organization [employer] [facility] ity Address [address] [place] [address] Care Team Providers Care Skin Diving Teacher Name Role Phone Scott Covarrubias MD Primary Care Provider [phone] Surgical History Surgery Date Site/Laterality Comments ANKLE SURGERY 1994 Left PROCEDURE: HISTORICAL ANKLE SURGERY; COMMENT: Ankle fracture, Dr. Flores Medical History Medical History Date Comments Aspirin-exacerbated respirat ory disease (AERD) DX:Aspirin-exacerbated respi ratory disease (AERD); COMMENT: Had desensitization at [facility] Mild intermittent asthma, uncomplicated DX:Mild intermittent asthma, [...] age to complete this topic Care Teams Skin Diving Teacher Relationship Specialty Start Date End Date Scott Covarrubias MD [address] [place] [address] Dr Bjorn MA PCP - General 08/27/22
[2024-09-22 06:51] LABS: MANUAL DIFF FLAG NO
[2024-09-22 07:15] LABS: Basophils Absolute Auto 0.1 X10*3/uL (0.0-0.2); Basophils Percent Auto 1.1 % (0-2); Eosinophils Absolute Auto 0.9 X10*3/uL (0.0-0.4); Eosinophils Percent Auto 8.8 % (0-4); Hematocrit 45.3 % (42.0-52.0); Hemoglobin 14.7 g/dl (14.0-18.0); Imm Gran Abs Auto 0.03 X10*3/uL (0.00-0.03); Imm Gran Pct Auto 0.3 % (0.0-0.4); Lymphocytes Absolute Auto 2.1 X10*3/uL (1.2-4.9); Lymphocytes Percent Auto 21.4 % (20-40); Mean Corpuscular HGB Conc 32.5 g/dl (31.0-36.0); Mean Corpuscular Hemoglobin 30.5 pg (27.0-33.0); Mean Platelet Volume 10.6 fL (9.4-12.4); Monocytes Absolute Auto 0.8 X10*3/uL (0.1-1.2); Monocytes Percent Auto 8.3 % (2-11); Neutrophils Absolute Auto 5.8 x10*3/uL (2.0-8.3); Neutrophils Percent Auto 60.1 % (45-73); Platelet Count 287 X10*3/uL (160-400); Red Blood Count 4.82 X10*6/uL (4.60-5.80); Red Cell Distribution Width 14.6 % (11.0-16.0); White Blood Count 9.6 X10*3/uL (4.8-10.8)
[2024-09-22 07:41] LABS: Alanine Aminotransferase 42 U/L (0-40); Albumin Level 3.8 g/dL (3.5-5.0); Alkaline Phosphatase 112 U/L (39-117); Anion Gap 10 (12-20); Aspartate Amino Transferase 30 U/L (5-37); Bilirubin Total 0.7 mg/dL (0.0-1.0); Blood Urea Nitrogen 19 mg/dL (9-16); Calcium 9.3 mg/dL (8.4-10.2); Carbon Dioxide 26 mmol/L (22-29); Chloride 111 mmol/L (96-108); Cholesterol 202 mg/dL (<200); Estimated Glomerular Filt Rate > 60; Glucose Random 108 mg/dL (60-115); HDL Cholesterol 72 mg/dL (>40); LDL Cholesterol Calculated 114 mg/dL (<100); Potassium 4.3 mmol/L (3.3-5.1); Sodium 143 mmol/L (135-145); Total Protein 7.3 g/dL (6.5-8.0); Triglycerides 84 mg/dL (<150)
[2024-09-22 07:54] LABS: Prostate Specific Antigen 1.76 ng/mL (<0.05-4.0)
[2024-09-23 09:23] LABS: Lyme Abs Screen <0.90 index
== END 2024-09-22 06:27 | disposition home or self-care (01) ==
LOC: HO.LAB 06:26
PROVIDERS: PCP Internal Medicine; Visit Provider Internal Medicine
DX: Z12.5 Encounter for screening for malignant neoplasm of prostate (principal); Z13.228 Encounter for screening for other metabolic disorders; Z13.220 Encounter for screening for lipoid disorders; Z13.0 Encounter for screening for diseases of the blood and blood-forming organs and certain disorders involving the immune mechanism; M79.606 Pain in leg, unspecified
CPT/HCPCS: 36415; 80053; 80061; 84153; 85025; 86617; 86618

== ENCOUNTER 2024-10-21 11:05 | Outpatient (AMB) | payer MEDICARE, SELFPAY ==
--- NOTE | 2024-10-21 11:07 | MHC.PC.OV ---
Vital Signs 10/21/24 11:13 Height 5 ft 10 in Weight 196 lb BMI 28.1 BP 140/74 H Blood Pressure Location Lt brachial Position Sitting Respiration 17 Pulse 87 Pulse Source Pulse Oximeter Temp 97.3 F Pulse Oximetry (%) 97 Oxygen Delivery Method Room Air Intake Visit Reasons: SI pain, left Membership Correspondent Required: No Accompanied by: Self / Same As Patient Allergies aspirin Allergy (Verified 10/21/24 11:11) runny nose, labored breathering azithromycin (From Zithromax) Allergy (Verified 10/21/24 11:11) Itching Tobacco use date assessed: 09/03/24 Dental Screening Dental Screen Date: 09/03/24 HPI HPI Comments History of Present Illness Details 69 year old with past medical history of asthma, DDD cervical, lumbar spine, arthritis presenting for follow up Asthma: Controlled on advair, pulmicort nasal. Saw neurosurgery Dr Thomas-recommended procedure and Dr Ordaz-did not recommend procedure. Saw [facility] in [facility]. Had one injection July 21-no improvement On celebrex. Gets the brand name through [facility]. He would like to trial doxycycline as antiinflammatory. Colonoscopy: Dr Elaine initial colonoscopy. Summer 2023-cologuard ROS CONSTITUTIONAL: Denies weight loss, fever and chills. HEENT: Denies changes in vision and hearing. RESPIRATORY: Denies SOB and cough. CV: Denies palpitations and CP GI: Denies abdominal pain, nausea, vomiting and diarrhea. : Denies dysuria and urinary frequency. MSK: Denies new myalgia and joint pain. SKIN: Denies rash and pruritus. NEUROLOGICAL: Denies headache PSYCHIATRIC: Denies recent changes in mood. PHYSICAL EXAM: GENERAL: Alert and oriented x 3. NAD EYES: EOMI. Anicteric. HENT: Moist mucous membranes. No scleral icterus. No cervical lymphadenopathy. LUNGS: Clear to auscultation bilaterally. CARDIOVASCULAR: Regular rate and rhythm. No murmur. No JVD. ABDOMEN: Soft, non-tender +bs EXTREMITIES: No edema. Non-tender. SKIN: No rashes or lesions. Warm. NEUROLOGIC: No focal neurological deficits. CN II-XII grossly intact PSYCHIATRIC: Cooperative. Appropriate mood and affect [facility] Medical History Asthma Surgical History History of ankle surgery Family History Mother Heart disease Type 2 diabetes mellitus Father No problems noted. 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 Stiven Patiño, Zhane Cuadra, Adan Buckner and colleagues, with an educational shraddha from [employer]. Physical exam (Primary Care) Vital Signs: Last Vital Signs Temp 97.3 F 10/21/24 11:13 Pulse 87 10/21/24 11:13 Resp 17 10/21/24 11:13 BP 140/74 H 10/21/24 11:13 Pulse Ox 97 10/21/24 11:13 Oxygen Delivery Method Room Air 10/21/24 11:13 BMI result Body Mass Index 28.1 Tobacco/Smoking Status: Tobacco use Status Tobacco use date assessed 09/03/24 10/21/24 11:07 Patient Tobacco Use Status Former Tobacco user 10/21/24 11:07 e-Cigarette/Vaping Use Former Use 10/21/24 11:07 Thrive Assessment: Date of Thrive Assessment Date Thrive assessed 09/03/24 10/21/24 11:07 Coding Level of Care Code Est Pt Level 4 (33921) Diagnoses Spondylolisthesis, lumbar region M43.16 Assessment & Plan Assessment & Plan (1) Spondylolisthesis, lumbar region: Code(s): M43.16 - Spondylolisthesis, lumbar region Category: Medical Plan He can trial senior living doxycycline to see if this improves pain levels, arthritis Medications: New doxycycline hyclate 100 mg PO BID 180 caps 3RF
[2024-10-21 11:13] VITALS: BP 140/74; PULSE 87; RESP 17; TEMP 36.3; O2SAT 97; BMI 28.1
--- OUTSIDE RECORDS SUMMARY | 2024-10-21 11:56 | XMS_ITS | Patient Health Record ---
Author Organization [facility] Address [address] [place] [address] Care Team Providers Care Smearer Name Role Phone Vadim ROTHMAN, Afua Primary Care Provider Stiven Pearson [phone] Reason For Referral No Information Plan Of Treatment No Information Insurance Providers Payer Name Payer Address Payer Phone Subscriber Number Group Number Insured Name Patient Relationship to Insured Coverage Start Date Coverage End Date [facility] [address] [place], [place] [id number] BERTIN DONATO Self - patient is the insured
--- OUTSIDE RECORDS SUMMARY | 2024-10-21 11:56 | XMS_ITS | Clinical Summary ---
Author Organization [facility] Address [address] [place] [address] Care Team Providers Care Chronic Care Nurse Name Role Phone Scott Covarrubias MD Primary Care Provider [phone] Surgical History Surgery Date Site/Laterality Comments ANKLE SURGERY 1994 Left PROCEDURE: HISTORICAL ANKLE SURGERY; COMMENT: Ankle fracture, Dr. Flores Medical History Medical History Date Comments Aspirin-exacerbated respirat ory disease (AERD) DX:Aspirin-exacerbated respi ratory disease (AERD); COMMENT: Had desensitization at [facility] Mild intermittent asthma, uncomplicated DX:Mild intermittent [...] 2023 05/01/2021, 07/27/2020, 07/06/2020 Influenza Vaccine (#1) 2024 DTaP,Tdap,and Td Vaccines (2 - Td [...] age to complete this topic Care Teams Chronic Care Nurse Relationship Specialty Start Date End Date Scott Covarrubias MD [address] [place] [address] Dr Bjorn MA PCP - General 08/27/22
--- OUTSIDE RECORDS SUMMARY | 2024-10-21 11:56 | XMS_ITS | Data Portability ---
Author Organization [place] [facility], Allergy Address [address] [place] [address] Assessment No assessment recorded. Plan of Treatment Reminders Order Date Submit Date Provider Last Modified By Organization Details Last Modified Time Details Appointments Establish ed 15 2024 08:45A M OCTAVIO CHAPMAN MD Not available Not available Not available Lab None recorded. Referral None recorded. Procedures None recorded. Surgeries None recorded. Imaging None recorded. Medication Orders None recorded. Patient TargetsNo targets recorded. Patient Instructions Encounter Date Encounter Id Patient Instructions Last Modified By Organization Details Last Modified Time 07/30/2024 [id number] Patient with history of aspirin exacerbated respiratory disease currently on ASA and topical steroid irrigations. Breathing, sense of smell and asthma are doing well. He will continue the current regimen and see me back in 6 months femi Not available 07/30/2024 09:32:34 Reason for Referral None Reported. Problems Name Problem SNOMED Code Status Onset Date Resolution Date Notes Provider Name and Address Organization Details Recorded Time Bleeding from nose 704663832 Active 2015 Epistaxis; Note: Date Diagnosed: 01/11/2015 8:42 AM () Not Available [facility] 4 02:28:03 Polyp of nasal cavity 734047467 Active 2015 Polyp of nasal cavity; CMS Risk: moderate risk Note: Date Diagnosed: 01/11/2015 8:43 AM (J33.0) Not Available [facility] 4 02:28:23 Deviated nasal septum 659157388 Active 2015 Deviated nasal septum; Note: Date Diagnosed: 10/20/2015 1:26 PM (J34.2) Not Available [facility] 4 02:28:20 Epistaxis Active 2015 Epistaxis; Note: Date Diagnosed: 01/11/2015 8:41 AM () Not Available [facility] 4 02:28:18 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 137154673 Active 2015 Coagulatio n defects: Other hemorrhagi c disorder due to intrinsic circulatin g anticoagul ants, antibodies , or inhibitors ; Note: Date Diagnosed: 01/11/2015 8:41 AM () Not Available [facility] 4 02:28:14 Long-term current use of anticoagu lant 898470092 Active 2015 nursing home (current) use of anticoagul ants; Note: Date Diagnosed: 01/11/2015 8:42 AM () Not Available [facility] 4 02:27:58 Allergy to drug 267819300 Active 2015 Allergy status to analgesic agent status; CMS Risk: moderate risk Note: Date Diagnosed: 01/11/2015 8:43 AM (Z88.6) Not Available [facility] 4 02:28:01 Disorder of respirato ry system 55196272 Active 2015 Respirator y conditions due to other specified external agents; CMS Risk: moderate risk Note: Date Diagnosed: 01/11/2015 8:43 AM (J70.8) Not Available [facility] 4 02:28:11 Disorder of smell 152900987 Active 2015 Other disturbanc es of smell and taste; Note: Date Diagnosed: 10/20/2015 1:27 PM (R43.8) Not Available [facility] 4 02:27:58 Disorder of taste 012345178 Active 2015 Other disturbanc es of smell and taste; Note: Date Diagnosed: 10/20/2015 1:27 PM (R43.8) Not Available [facility] 4 02:27:58 Uncomplic ated mild persisten t asthma 358191219 Active 2016 Mild persistent asthma, uncomplica katy; Note: Date Diagnosed: 06/08/2015 10:18 AM (J45.30) Not Available [facility] 4 02:28:13 Allergic rhinitis 68129255 Active 2021 Other allergic rhinitis; Note: Date Diagnosed: 07/25/2021 8:40 AM (J30.89) Not Available [facility] 4 02:28:13 Other specified respirato ry system anomaly NOS Active 2021 Other specified respirator y disorders; Note: Date Diagnosed: 07/25/2021 8:40 AM (J98.8) Not Available [facility] 4 02:28:22 Polyp of nasal cavity and/or nasal sinus 224948686 Active 2024 OCTAVIO GONZALEZ MD [address] [facility],[place] [address], [place], [address] , [facility] 5 09:32:06 Moderate persisten t asthma 034290917 Active 2024 OCTAVIO GONZALEZ MD [address] [place] [address],[place] [address], [place], [address] , [facility] 5 09:32:06 Exacerbat ion of moderate persisten t asthma 405743539 Active 2024 OCTAVIO GONZALEZ MD [address] [place] [address],[place] [address], [place], [place], [address] , [facility] 5 09:32:06 Problem Notes None recorded. Procedures Surgical History Date Name Laterality Status Provider Name and Address Organization Details Recorded Time 5 JMSNasal/Sinu s Endoscopy-BRANDI OR surgical cavities completed OCTAVIO MANDUJANO MD [address] [facility],[place] [address], [place], [address], [facility] 07/30/2024 09:32:01 Imaging Results None recorded. Procedure Notes None recorded. Medical Equipment None Reported. Allergies Allergen ID Allergen Name Allergen Category Reaction Reaction Severity Criticality Documentation Date Start Date Code Code System Note Provider Name and Address Organization Details Recorded Time 47129 strawberr y allergeni c extract food,medi cation other Not available Not available 08/19/2023 72778 4 RxNorm React ion: unkno wn, unspe cifie d;; Not Available [facility] 4 00:56:27 35216 aspirin medicatio n Not available Not available Not available 08/19/2023 1191 RxNorm React ion: other react ion, SOB; Not Available [facility] 4 00:56:29 48137 Singulair medicatio n other Not available Not available 08/19/2023 48004 9 RxNorm React ion: unkno wn, unspe cifie d;; Not Available [facility] 4 00:56:39 Medications Name Sig Start Date Stop Date Status Note LastModified by Organization Details LastModified Time Prescript ion - New 07/30 completed Rx^Rx_20 245856 Not Available Not Available Not Available doxycycli ne hyclate 100 mg capsule TAKE ONE CAPSULE BY MOUTH TWICE A DAY FOR 7 DAYS. 07/30 completed Not Available Not Available Not Available Advair Diskus 100 mcg-50 mcg/dose powder for inhalatio n INHALE 1 PUFF TWO TIMES A DAY active Not Available Not Available No t Available budesonid e 0.5 mg/2 mL suspensio n for nebulizat ion Mix 1 vial in 8 ounces of distille d water with a buffered saline packet. Irrigate nose twice daily. Use half a bottle on each side 2024 active Not Available Not Available Not Avai lable monteluka st 10 mg tablet Take 1 tablet by mouth 07/30 completed Medicati on ID: [id number] D uration Value: 90 Prescri bed By Name: Luis Alberto Romero nd Name: monteluk ast Send Method: E-Prescr ibed Sub s Allowed: subs OK Speci al Instruct ion: Take 1 tablet by mouth every day in the evening Medicati onGeneri cName: monteluk ast Not Available Not Available Not Available Daniel Aspirin 325 mg tablet 2015 active Medicati on ID: [id number] B rand Name: Daniel Aspirin Send Method: E-Prescr ibed Sub s Allowed: subs OK Medic ationGen ericName : Daniel Aspirin Not Available Not Available Not Available prednison e 07/30 completed Medicati on ID: [id number] D uration Value: 10 Prescri bed By Name: Luis Alberto Romero nd Name: predniso ne Send Method: E-Prescr ibed Sub s Allowed: subs OK Speci al Instruct ion: takes 3 tablets daily for 3 days, 2 tablets daily for 3 daysand 1 tablet daily for 3 days Med icationG enericNa me: predniso ne Not Available Not Available Not Available ProAir HFA 90 mcg/actua tion aerosol inhaler 2 puff 2016 active Medicati on ID: [id number] P rescribe d By Name: Luis Alberto Romero nd Name: ProAir HFA Send Method: E-Prescr ibed Sub s Allowed: subs OK Medic ationGen ericName : ProAir HFA Not Available Not Available Not Available Zyrtec 10 mg capsule 1 capsule by mouth 2015 active Medicati on ID: [id number] D uration Value: 30 Brand Name: Zyrtec S end Method: E-Prescr ibed Sub s Allowed: subs OK Medic ationGen ericName : Zyrtec Not Available Not Available Not Available Nasacort 55 mcg nasal spray aerosol 01/18 completed Medicati on ID: [id number] R julio: () Brand Name: Nasacort Send Method: E-Prescr ibed Sub s Allowed: subs OK Medic ationGen ericName : Nasacort Not Available Not Available Not Available Vitals Date Recorded Body height Body mass index (BMI) Body weight Provider Name and Address Organization Details Last Updated DateTime 07/30/2024 177.8 cm 28.7 kg/m2 03062.47 g Cherelle Shine [place] - [facility] 07/30/2024 09:12:54 Social History None recorded. Functional Status None recorded. Mental Status None recorded. Family History Nothing Reported. Medical History No medical history recorded. Past Encounters Encounter ID Performer Location Encounter Start Date Encounter Closed Date Diagnosis/Indication Diagnosis SNOMED-CT Code Diagnosis ICD10 Code Diagnosis Note [id number] OCTAVIO GONZALEZ MD [facility] [address] [facility] [place] [address] 07/30/2024 09:01:04 07/30/2024 09:35:39 Allergy to drug 959625862 Z88.6 Polyp of n holly cavity and/or nasal sinus 709931501 J33.1 Moderate p ersistent asthma 791914737 J45.40 Disorder o f respiratory system 90569717 J70.8 Health Concerns Section Related Observation LastModified by Organization Detai ls LastModified Time None Recorded Concern Status LastModified by Organization Details LastModified Time None Recorded Advance Directives Directive None Recorded Payers Insurance Date Sequence Insurance Name Policy Number Policy Aguayo Covered Member ID Aguayo Member ID Guarantor Name 08/05/2024 2 [place] [id number] Alex Avelar [id number] Alex Avelar 07/30/2024 2 [employer] (PPO) [id number] Alex Avelar [id number] Alex Avelar 08/05/2024 1 [place] [employer] Alex Avelar [id number] Alex Avelar Notes Date Note Type Note Provider Name and Address Organization Details Recorded Time 07/30/2024 text/html Patient with history of aspirin exacerbated respiratory disease presently on aspirin 325 mg daily, budesonide irrigations twice daily, Advair once dailyRecently had a epidural steroid injection and that has improved his sense of smell. Otherwise no chest pain or shortness of breath. OCTAVIO MANDUJANO MD [address] [place] [address], [place], [address], [place] [facility] 07/30/2024 09:32:50
== END 2024-10-21 11:48 | disposition home or self-care (01) ==
LOC: HO.HMCHD 11:05
PROVIDERS: PCP Internal Medicine; Visit Provider Internal Medicine
DX: M43.16 Spondylolisthesis, lumbar region (principal)

== ENCOUNTER → 2024-10-21 11:05 | Outpatient (BNVA) | payer MEDICARE, SELFPAY | PROVIDERS: PCP Internal Medicine; Visit Provider Internal Medicine | DX: M43.16 Spondylolisthesis, lumbar region (principal); J45.909 Unspecified asthma, uncomplicated | CPT/HCPCS: 99212 ==

== ENCOUNTER 2025-01-12 08:04 | Outpatient (REF) | payer MEDICARE, SELFPAY ==
--- NOTE | ~2025-01-12 | XR_ITS ---
EXAMINATION: XR KNEE, LEFT CLINICAL INFORMATION: M25.562 - Pain in left knee COMPARISON: None available. TECHNIQUE: AP bilateral knees one view. Left knee 2 views. FINDINGS: Left knee: No visible acute fracture or dislocation. Medial and lateral compartment joint space is maintained. Patellofemoral compartment joint space appears relatively maintained, as seen on the lateral view. No significant effusion. No suspicious bony lesions. No abnormal soft tissue calcification. No radiopaque foreign body. Right knee: No acute osseous findings. Joint spaces appear maintained. XR/XR knee LT 3V IMPRESSION: Left knee: No acute osseous findings. Electronically signed by: Francisco Trevino MD 01/12/2025 11:13 AM EDT
== END 2025-01-12 08:05 | disposition home or self-care (01) ==
LOC: HO.HOSX 08:04
PROVIDERS: Visit Provider Physician Assistant
DX: M17.12 Unilateral primary osteoarthritis, left knee (principal)
CPT/HCPCS: 73562; 99212

== ENCOUNTER 2025-01-12 10:39 | Outpatient (AMB) | payer MEDICARE, SELFPAY ==
--- NOTE | 2025-01-12 10:49 | A.OFFVIS_ITS ---
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 Patient reports intermittent pain that presented in November, shortly after he had back injections through [facility]. Hx of sciatica. He complains of weakness, stating difficulty with walking and clicking in his knee with applying weight. Hx of left knee torn ligament. No previous treatments. He used PRIM topical cream however he discontinue due to medication contradictions. He uses a cane with ambulation. 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 He denies pain. He states over the last several weeks he has developed clicking in the left knee and notices it more with bending and stairs. He states he has done some therapy in the past and is worked more with stretching exercises. [facility] Medical History (Updated 01/12/25 @ 11:33 by Cruz Reynolds PA-C) Asthma Surgical History History of ankle surgery Family History Mother Heart disease Type 2 diabetes mellitus Father No problems noted. 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 No tenderness over the medial or lateral joint line. Calf is supple and nontender neurovascularly intact. Results Reviewed Results Reviewed: Xrays were obtained in the office today and personally reviewed by me of the left knee show mild degenerative changed Assessment & Plan Assessment & Plan (1) Patellofemoral arthritis of left knee: Code(s): M17.12 - Unilateral primary osteoarthritis, left knee Category: Medical Plan: We discussed options which include physical therapy which she would like to hold off on at this time. We did review some home exercises in the office today to focus on strengthening exercises of the hamstrings and glutes. He will continue with activities as tolerated and if symptoms persist or worsen he can contact our office to discuss a formal referral for physical therapy otherwise he will follow up as needed. Orders: Orders 2 XR knee LT 3V Today M25.562 - Pain in left knee Coding Level of Care Code Est Pt Level 3 (84853) Complex EM visit Add On G2211 Diagnoses Patellofemoral arthritis of left knee M17.12
== END 2025-01-12 11:23 | disposition home or self-care (01) ==
LOC: HO.HOS 10:39
PROVIDERS: PCP Internal Medicine; Visit Provider Physician Assistant
DX: M17.12 Unilateral primary osteoarthritis, left knee (principal)
CPT/HCPCS: 99213; G2211

== ENCOUNTER → 2025-01-12 10:40 | Outpatient (BNV) | payer MEDICARE, SELFPAY | PROVIDERS: Visit Provider Radiology Diagnostic Ultrasound | DX: M25.562 Pain in left knee (principal) | CPT/HCPCS: 73562 ==